=== PATIENT | female | born 1960 | race Caucasian/White ===

== ENCOUNTER 2021-01-29 07:17 | Day surgery (SDC) | payer OTHER, SELFPAY ==
[~2021-01-29] VITALS: Ht 149.9 cm; Wt 68.0 kg
[~2021-01-29 07:17] MED LIST: CEFAZOLIN SOD 1 GM in D5W 50 ML IV ONE
[2021-01-29] MEDS ORDERED: MIDAZOLAM HCL 5 MG/5 ML VIAL IVP ONE (09:08)
[2021-01-29] MEDS ORDERED: fentaNYL CITRATE 250 MCG/5 ML AMP IV ONE (09:08)
[2021-01-29] MEDS ORDERED: PROPOFOL 200MG/ 20ML VIAL (DIPRIVAN) IV ONE (09:08)
[2021-01-29] MEDS ORDERED: LR 1,000 ML IV.SOLN IV ONE (09:08)
[2021-01-29] MEDS ORDERED: KETOROLAC TROMETHAMINE 30 MG VIAL IVP ONE (09:08)
[2021-01-29] MEDS ORDERED: DESFLURANE 15 MIN GAS INH ONE (09:08)
[2021-01-29] MEDS ORDERED: ONDANSETRON HCL 4 MG/2 ML VIAL IVP ONE (09:08)
[2021-01-29] MEDS ORDERED: SUGAMMADEX SODIUM 200 MG/2 ML VIAL IV ONE (09:08)
[2021-01-29] MEDS ORDERED: NS 1000 ML IV.SOLN IV ONE (09:08)
[2021-01-29] MEDS ORDERED: NS IRRIG SOLN 1000 ML IR ONE (09:08)
[2021-01-29] MEDS ORDERED: LIDOCAINE 1% 10 MG/ML, 20 ML MDV INJ ONE (09:08)
[2021-01-29] MEDS ORDERED: ROCURONIUM BROMIDE 10 MG/ML (ZEMURON) IV ONE (09:08)
[2021-01-29] MEDS ORDERED: BUPIVACAINE /PF 0.25% 30 ML VIAL INJ ONE (09:08)
[2021-01-29] MEDS ORDERED: WATER FOR IRRIGATION,STERILE 1,000 ML IRRIG.SOLN IR ONE (09:08)
[2021-01-29] MEDS ORDERED: DEXAMETHASONE SOD PHOSPHATE 4 MG/ML VIAL IVP ONE (09:08)
[2021-01-29] MEDS ORDERED: MIDAZOLAM HCL 2 MG/2 ML VIAL (VERSED) IVP PRN (09:45)
[2021-01-29] MEDS ORDERED: HYDROmorphone 1 MG/ML INJ. CARTRIDGE IVP PRN ×3 (09:45→10:30)
[2021-01-29] MEDS ORDERED: MEPERIDINE HCL/PF 25 MG/ML DISP.SYRIN IVP PRN (09:45)
[2021-01-29] MEDS ORDERED: METOCLOPRAMIDE HCL 10 MG/2 ML VIAL IVP PRN (09:45)
[2021-01-29] MEDS ORDERED: LR 1,000 ML IV SCH (09:45)
[2021-01-29] MEDS ORDERED: D5/0.45 NS 1,000 ML IV SCH (10:30)
[2021-01-29] MEDS ORDERED: HYDROcodone/ACETAMIN 5-325 MG TAB (NORCO/ VICODIN) PO PRN ×2 (10:30)
[2021-01-29] MEDS ORDERED: ACETAMINOPHEN I.V. 1000 MG 100 ML IV ONE (10:41)
[2021-01-29 13:19] VITALS: BP_SYST 121
== END 2021-01-29 13:10 | disposition home or self-care (01) ==
LOC: SDS 07:17 → SMU 07:18 → SDS 13:10
PROVIDERS: ATTEND Colon & Rectal Surgery
DX: K80.10 Calculus of gallbladder with chronic cholecystitis without obstruction (principal); Z20.822 Contact with and (suspected) exposure to COVID-19; Z79.899 Other long term (current) drug therapy
CPT/HCPCS: 47563; 74300; 88304; C1727; C1758; J0131; J0690; J1100; J1885; J2001; J2250; J2405; J2704; J3010; J3490 ×2; J7030; J7060; J7120; Q9967; U0003; 76000